=== PATIENT | male | born 1960 | race Caucasian/White ===

== ENCOUNTER 2016-08-20 19:14 | Inpatient (IN) | payer OTHER ==
[~2016-08-20] VITALS: Ht 177.8 cm; Wt 82.3 kg
[2016-08-20] MEDS ORDERED: DUONEB INH ONE ×2 (20:47)
[2016-08-20] MEDS ORDERED: METHYLPRED SOD SUCC 125 MG/2 ML VIAL ONE (20:48)
[2016-08-20] MEDS ORDERED: MULTIVITS ADULT INJ 10 ML, THIAMINE 100 MG, FOLIC ACID INJ 1 MG in SODIUM CHLORIDE 0.9%... IV ONE ×3 (20:55)
[2016-08-21] MEDS ORDERED: AZITHROMYCIN 500 MG VIAL IV ONE (04:17)
[2016-08-21] MEDS ORDERED: SODIUM CHLORIDE 0.9% 250 ML IV ONE (04:18)
[2016-08-21 05:55] VITALS: BP_SYST 168; RESP 20; TEMP 98.1
[2016-08-21] MEDS ORDERED: LORAZEPAM 2 MG TAB PO PRN (06:05)
[2016-08-21] MEDS ORDERED: HALOPERIDOL 5 MG TAB PO PRN (06:05)
[2016-08-21] MEDS ORDERED: DIPHENHYDRAMINE 50 MG CAP PO PRN (06:05)
[2016-08-21] MEDS ORDERED: MAG HYDROX 30 ML UDC PO PRN (06:05)
[2016-08-21] MEDS ORDERED: HALOPERIDOL 5 MG/ML VIAL IM PRN (06:05)
[2016-08-21] MEDS ORDERED: LORAZEPAM 2 MG/ML VIAL IM PRN (06:05)
[2016-08-21] MEDS ORDERED: DIPHENHYDRAMINE 50 MG/ML VIAL IM PRN (06:05)
[2016-08-21] MEDS ORDERED: NEB-ALBUTEROL 2.5 MG/3 ML INH PRN (06:10)
[2016-08-21 06:15] VITALS: Ht 177.8 cm; Wt 82.3 kg
[2016-08-21 06:50] VITALS: RESP 22
[2016-08-21] MEDS ORDERED: ALBUTEROL HFA INH PRN (08:40)
[2016-08-21 09:35] VITALS: BP_SYST 158; RESP 20; TEMP 97.6
[2016-08-21] MEDS: NICOTINE 21 MG/24 HR TRANSDERM SCH (10:05)
[2016-08-21] MEDS: ACETAMINOPHEN 325 MG TAB PO PRN ×2 (12:49→16:49)
[2016-08-21] MEDS: NEB-BROVANA 15 MCG/2 ML INH SCH ×2 (13:18→20:20)
[2016-08-21] MEDS: NEB-BUDESONIDE 0.5 MG INH SCH ×2 (13:18→20:20)
[2016-08-21] MEDS: ASPIRIN EC 81 MG TAB PO SCH (14:14)
[2016-08-21] MEDS: METHOCARBAMOL 500 MG TAB PO SCH ×3 (14:14→20:59)
[2016-08-21] MEDS: LISINOPRIL 20 MG TAB PO SCH (14:14)
[2016-08-21] MEDS: FLUOXETINE 20 MG CAP PO SCH (14:14)
[2016-08-21] MEDS: DICLOFENAC 75 MG TAB PO SCH ×2 (14:14→20:59)
[2016-08-21] MEDS ORDERED: ALBUTEROL INH SCH (15:00)
[2016-08-21] MEDS ORDERED: IPRATROPIUM INH SCH (15:00)
[2016-08-21] MEDS: LEVOFLOXACIN 750 MG TAB PO SCH (16:40)
[2016-08-21] MEDS: PREDNISONE 50 MG TAB PO SCH (16:40)
[2016-08-21] MEDS: BISOPROLOL 5 MG TAB PO SCH (16:40)
[2016-08-21 19:00] VITALS: BP_SYST 146; RESP 22; TEMP 97.6
[2016-08-21] MEDS: DUONEB INH SCH ×3 (19:00→23:00)
[2016-08-21] MEDS: FAMOTIDINE 20 MG TAB PO SCH (20:59)
[2016-08-21] MEDS: TRAZODONE 50 MG TAB PO PRN (23:18)
[2016-08-22] MEDS: ALBUTEROL HFA INH SCH ×3 (00:02→19:05)
[2016-08-22] MEDS: ALBUTEROL HFA INH PRN ×3 (01:07→11:39)
[2016-08-22 07:12] VITALS: BP_SYST 128; RESP 20; TEMP 98.5
[2016-08-22] MEDS: DUONEB INH SCH ×2 (08:00→11:00)
[2016-08-22] MEDS: NEB-BROVANA 15 MCG/2 ML INH SCH ×2 (08:00→19:05)
[2016-08-22] MEDS: NEB-BUDESONIDE 0.5 MG INH SCH ×2 (08:00→19:05)
[2016-08-22] MEDS: FLUOXETINE 20 MG CAP PO SCH (08:43)
[2016-08-22] MEDS: METHOCARBAMOL 500 MG TAB PO SCH ×4 (08:43→21:45)
[2016-08-22] MEDS: PREDNISONE 50 MG TAB PO SCH (08:43)
[2016-08-22] MEDS: ASPIRIN EC 81 MG TAB PO SCH (08:44)
[2016-08-22] MEDS: LISINOPRIL 20 MG TAB PO SCH (08:44)
[2016-08-22] MEDS: LEVOFLOXACIN 750 MG TAB PO SCH (08:44)
[2016-08-22] MEDS: BISOPROLOL 5 MG TAB PO SCH (08:44)
[2016-08-22] MEDS: DICLOFENAC 75 MG TAB PO SCH ×2 (08:44→21:45)
[2016-08-22] MEDS: NICOTINE 21 MG/24 HR TRANSDERM SCH (08:57)
[2016-08-22] MEDS: VARENICLINE 0.5 MG TAB PO SCH (14:45)
[2016-08-22] MEDS: IPRATROPIUM INH SCH ×2 (16:10→19:05)
[2016-08-22 18:51] VITALS: BP_SYST 127; RESP 18; TEMP 98.9
[2016-08-22] MEDS: FAMOTIDINE 20 MG TAB PO SCH (21:45)
[2016-08-22] MEDS: TRAZODONE 50 MG TAB PO PRN (23:49)
[2016-08-23] MEDS: IPRATROPIUM INH SCH ×5 (00:02→23:17)
[2016-08-23 07:22] VITALS: BP_SYST 145; RESP 18; TEMP 97.3
[2016-08-23] MEDS: ALBUTEROL HFA INH SCH ×4 (08:30→23:17)
[2016-08-23] MEDS: FLUTICASONE PROPIONATE INH SCH ×2 (08:30→19:42)
[2016-08-23] MEDS: SALMETEROL INH SCH ×2 (08:30→19:42)
[2016-08-23] MEDS: ASPIRIN EC 81 MG TAB PO SCH (08:47)
[2016-08-23] MEDS: LEVOFLOXACIN 750 MG TAB PO SCH (08:47)
[2016-08-23] MEDS: BISOPROLOL 5 MG TAB PO SCH (08:47)
[2016-08-23] MEDS: NICOTINE 21 MG/24 HR TRANSDERM SCH (08:47)
[2016-08-23] MEDS: LISINOPRIL 20 MG TAB PO SCH (08:47)
[2016-08-23] MEDS: FLUOXETINE 20 MG CAP PO SCH (08:47)
[2016-08-23] MEDS: DICLOFENAC 75 MG TAB PO SCH ×2 (08:47→21:00)
[2016-08-23] MEDS: METHOCARBAMOL 500 MG TAB PO SCH ×4 (08:47→21:00)
[2016-08-23] MEDS: VARENICLINE 0.5 MG TAB PO SCH (08:47)
[2016-08-23] MEDS: PREDNISONE 50 MG TAB PO SCH (08:47)
[2016-08-23] MEDS: ACETAMINOPHEN 325 MG TAB PO PRN (10:43)
[2016-08-23] MEDS: ALU/MAG/SIM 30 ML UDC PO PRN (18:17)
[2016-08-23 19:00] VITALS: BP_SYST 143; RESP 18; TEMP 97.4
[2016-08-23] MEDS: FAMOTIDINE 20 MG TAB PO SCH (21:00)
[2016-08-23] MEDS ORDERED: TRAZODONE 100 MG TAB PO PRN (21:00)
[2016-08-23] MEDS: TRAZODONE 50 MG TAB PO PRN (23:24)
[2016-08-24] MEDS: ALBUTEROL HFA INH SCH ×4 (00:15→20:15)
[2016-08-24] MEDS: IPRATROPIUM INH SCH ×4 (00:15→20:15)
[2016-08-24] MEDS: SALMETEROL INH SCH ×2 (04:59→20:15)
[2016-08-24] MEDS: FLUTICASONE PROPIONATE INH SCH ×2 (04:59→20:15)
[2016-08-24] MEDS: FLUOXETINE 20 MG CAP PO SCH (08:46)
[2016-08-24] MEDS: VARENICLINE 0.5 MG TAB PO SCH (08:46)
[2016-08-24] MEDS: PREDNISONE 50 MG TAB PO SCH (08:46)
[2016-08-24] MEDS: LEVOFLOXACIN 750 MG TAB PO SCH (08:46)
[2016-08-24] MEDS: ASPIRIN EC 81 MG TAB PO SCH (08:46)
[2016-08-24] MEDS: METHOCARBAMOL 500 MG TAB PO SCH ×4 (08:46→21:18)
[2016-08-24] MEDS: LISINOPRIL 20 MG TAB PO SCH (08:46)
[2016-08-24] MEDS: BISOPROLOL 5 MG TAB PO SCH (08:46)
[2016-08-24] MEDS: DICLOFENAC 75 MG TAB PO SCH ×2 (08:46→21:18)
[2016-08-24 08:48] VITALS: BP_SYST 158; RESP 18; TEMP 97.7
[2016-08-24] MEDS: NICOTINE 21 MG/24 HR TRANSDERM SCH (09:08)
[2016-08-24 10:14] VITALS: BP_SYST 124
[2016-08-24] MEDS: ALU/MAG/SIM 30 ML UDC PO PRN (10:40)
[2016-08-24] MEDS ORDERED: BISOPROLOL 5 MG TAB PO ONE (13:10)
[2016-08-24 19:00] VITALS: BP_SYST 137; RESP 18; TEMP 98
[2016-08-24] MEDS: FAMOTIDINE 20 MG TAB PO SCH (21:18)
[2016-08-24] MEDS: TRAZODONE 50 MG TAB PO PRN (21:19)
[2016-08-25] MEDS: IPRATROPIUM INH SCH ×5 (07:00→23:09)
[2016-08-25] MEDS: FLUTICASONE PROPIONATE INH SCH ×2 (07:00→20:10)
[2016-08-25] MEDS: SALMETEROL INH SCH ×2 (07:00→20:10)
[2016-08-25] MEDS: ALBUTEROL HFA INH SCH ×5 (07:00→23:09)
[2016-08-25 07:55] VITALS: BP_SYST 130; RESP 20; TEMP 97.9
[2016-08-25] MEDS: ASPIRIN EC 81 MG TAB PO SCH (08:30)
[2016-08-25] MEDS: METHOCARBAMOL 500 MG TAB PO SCH ×4 (08:30→21:30)
[2016-08-25] MEDS: LISINOPRIL 20 MG TAB PO SCH (08:30)
[2016-08-25] MEDS: BISOPROLOL 5 MG TAB PO SCH (08:30)
[2016-08-25] MEDS: LEVOFLOXACIN 750 MG TAB PO SCH (08:30)
[2016-08-25] MEDS: FLUOXETINE 20 MG CAP PO SCH (08:30)
[2016-08-25] MEDS: VARENICLINE 0.5 MG TAB PO SCH ×2 (08:30→21:30)
[2016-08-25] MEDS: PREDNISONE 50 MG TAB PO SCH (08:30)
[2016-08-25] MEDS: DICLOFENAC 75 MG TAB PO SCH ×2 (08:30→21:31)
[2016-08-25] MEDS: NICOTINE 21 MG/24 HR TRANSDERM SCH (09:36)
[2016-08-25] MEDS: CETIRIZINE 10 MG TAB PO SCH (10:27)
[2016-08-25 19:10] VITALS: BP_SYST 142; RESP 20; TEMP 98.5
[2016-08-25] MEDS: FAMOTIDINE 20 MG TAB PO SCH (21:30)
[2016-08-25] MEDS: TRAZODONE 50 MG TAB PO PRN (21:33)
[2016-08-26] MEDS: SALMETEROL INH SCH (08:13)
[2016-08-26] MEDS: IPRATROPIUM INH SCH ×2 (08:13→12:00)
[2016-08-26] MEDS: FLUTICASONE PROPIONATE INH SCH (08:13)
[2016-08-26] MEDS: ALBUTEROL HFA INH SCH ×2 (08:14→12:00)
[2016-08-26 08:59] VITALS: BP_SYST 138; RESP 20; TEMP 97.5
[2016-08-26] MEDS: NICOTINE 21 MG/24 HR TRANSDERM SCH (09:07)
[2016-08-26] MEDS: DICLOFENAC 75 MG TAB PO SCH (09:07)
[2016-08-26] MEDS: CETIRIZINE 10 MG TAB PO SCH (09:07)
[2016-08-26] MEDS: METHOCARBAMOL 500 MG TAB PO SCH ×2 (09:07→13:00)
[2016-08-26] MEDS: BISOPROLOL 5 MG TAB PO SCH (09:07)
[2016-08-26] MEDS: VARENICLINE 0.5 MG TAB PO SCH (09:07)
[2016-08-26] MEDS: PREDNISONE 50 MG TAB PO SCH (09:07)
[2016-08-26] MEDS: ASPIRIN EC 81 MG TAB PO SCH (09:07)
[2016-08-26] MEDS: FLUOXETINE 20 MG CAP PO SCH (09:07)
[2016-08-26] MEDS: LISINOPRIL 20 MG TAB PO SCH (09:07)
[2016-08-26] MEDS: LEVOFLOXACIN 750 MG TAB PO SCH (09:07)
[2016-08-26 11:19] VITALS: BP_SYST 138; RESP 20; TEMP 97.5
[2016-08-26 11:28] VITALS: BP_SYST 138; RESP 20; TEMP 97.5
== END 2016-08-26 13:21 | disposition home or self-care (01) | DRG 885 ==
LOC: ENRESERV → ENRESERVDT → ENRESERVTM → ER 19:14 → EMR 08-21 04:39 → ENPENDDIS 08-21 04:39 → PSY 08-21 05:42
PROVIDERS: ADMIT Psychiatry & Neurology Psychiatry; ATTEND Psychiatry & Neurology Psychiatry
DX: F33.2 Major depressive disorder, recurrent severe without psychotic features (principal); J18.9 Pneumonia, unspecified organism; D69.59 Other secondary thrombocytopenia; J44.0 Chronic obstructive pulmonary disease with (acute) lower respiratory infection; J44.1 Chronic obstructive pulmonary disease with (acute) exacerbation; G89.29 Other chronic pain; I10 Essential (primary) hypertension; F43.10 Post-traumatic stress disorder, unspecified; M54.9 Dorsalgia, unspecified; Z79.82 Long term (current) use of aspirin; Z79.51 Long term (current) use of inhaled steroids; F17.210 Nicotine dependence, cigarettes, uncomplicated; F10.20 Alcohol dependence, uncomplicated; K70.10 Alcoholic hepatitis without ascites; L53.8 Other specified erythematous conditions
CPT/HCPCS: 36415; 71010; 80053; 80076; 81001; 82553; 83735; 83880; 84439; 84443; 84484; 85025; 85610; 87071; 93005; 94640; 96365; 96366; 96375; 99232; 99253